=== PATIENT | female | born 1990 | race Caucasian/White ===

== ENCOUNTER 2024-07-09 14:37 | Inpatient (IN) | payer OTHER ==
[2024-07-09] MEDS: LACTATED RINGERS SOLUTION 1,000 ML/1,000 ML INFUS.BAG IV SCH (15:45)
[2024-07-09 17:01] LABS: EPI CELLS >36 /uL (0-25.1); HYALINE CASTS 4 /uL (0-3.1); PH,URINE 5.5 (5.0-8.0); URINE APPEARANCE CLEAR; URINE BILIRUBIN NEGATIVE (NEGATIVE); URINE COLOR YELLOW; URINE GLUCOSE (UA) 2+ (NEGATIVE); URINE KETONE TRACE (NEGATIVE); URINE LEUK ESTERASE 1+ (NEGATIVE); URINE NITRITE NEGATIVE (NEGATIVE); URINE PROTEIN TRACE (NEGATIVE); URINE WBC 92 /uL (0-25.8)
[2024-07-09 17:04] LABS: URINE BACTERIA 184.3 /uL (0-1359); URINE RBC 30.1 /uL (0-23.9)
[2024-07-09 20:12] VITALS: BMI 38.9
[2024-07-09 20:38] LABS: BASO % 0.4 % (0-2.0); EOS % 0.6 % (0-4.5); HEMATOCRIT 38.6 % (32.4-45.2); HEMOGLOBIN 12.3 GM/dL (10.7-15.3); LYMPH % 19.5 % (8-40); MCH 26.7 pg (25.7-33.7); MEAN CELL VOLUME 83.5 fl (80-96); MEAN PLT VOLUME 9.6 fl (7.5-11.1); MONO % 6.8 % (3.8-10.2); NEUT % 72.7 % (42.8-82.8); PLATELET COUNT 296 10^3/uL (134-434); RBC 4.62 M/mm3 (3.60-5.2); RDW 14.6 % (11.6-15.6); WHITE BLOOD COUNT 9.8 K/mm3 (4.0-10.0)
[2024-07-09 20:50] LABS: INR 0.99 (0.83-1.09); PROTHROMBIN TIME (PATIENT) 11.2 SEC (9.7-13.0)
[2024-07-09 20:53] LABS: ACTIVATED PTT 29.3 SECONDS (25.2-36.5)
[2024-07-09 20:55] LABS: POTASSIUM 4.3 mmol/L (3.5-5.1)
[2024-07-09 20:56] LABS: CALCIUM 9.1 mg/dL (8.5-10.1)
[2024-07-09 20:57] LABS: BLOOD UREA NITROGEN 11.6 mg/dL (7-18)
[2024-07-09 21:01] LABS: CREATININE 0.6 mg/dL (0.55-1.3)
[2024-07-09] MEDS ORDERED: BUTORPHANOL TARTRATE 2 MG/ML VIAL ONE (21:22)
[2024-07-09] MEDS ORDERED: PROMETHAZINE HCL 25 MG/1 ML VIAL ONE (21:23)
[2024-07-09] MEDS: PROMETHAZINE HCL 25 MG/1 ML VIAL IVPB ONE (21:45)
[2024-07-09] MEDS: BUTORPHANOL TARTRATE 2 MG/ML VIAL IVPB ONE (21:45)
[2024-07-10] MEDS ORDERED: PROMETHAZINE HCL 25 MG/1 ML VIAL ONE (02:55)
[2024-07-10] MEDS ORDERED: BUTORPHANOL TARTRATE 2 MG/ML VIAL ONE (02:55)
[2024-07-10] MEDS: PROMETHAZINE HCL 25 MG/1 ML VIAL IVPB PRN (03:00)
[2024-07-10] MEDS: BUTORPHANOL TARTRATE 1 MG/ML VIAL IVPB PRN (03:00)
[2024-07-10] MEDS ORDERED: OXYTOCIN 20 UNITS in 0.9% NS 20 UNIT/1,000 ML INFUS.BAG IV ONE ×2 (04:00→06:47)
[2024-07-10] MEDS ORDERED: LIDOCAINE HCL 1% PRESERVATIVE FREE - 30ML VIAL ONE (04:00)
[2024-07-10] MEDS: OXYTOCIN 20 UNITS in 0.9% NS 20 UNIT/1,000 ML INFUS.BAG IV SCH (04:09)
[2024-07-10] MEDS ORDERED: oxyCODONE HCL 5 MG TABLET PO PRN (04:30)
[2024-07-10] MEDS ORDERED: METHYLERGONOVINE MALEATE 0.2 MG/1 ML AMP IM PRN (04:30)
[2024-07-10] MEDS ORDERED: BISACODYL 10 MG SUPP.RECT RC PRN (04:30)
[2024-07-10] MEDS: IBUPROFEN 600 MG TABLET (FP) PO PRN (09:23)
[2024-07-10] MEDS: FERROUS SO4 325 MG TABLET (FP) PO SCH (09:23)
[2024-07-10] MEDS: PRENATAL VITAMINS W/ FOLIC ACID TABLET (FP) PO SCH (09:23)
[2024-07-10 12:55] LABS: HIV INTERPRETATION NEGATIVE (NEGATIVE)
[2024-07-10] MEDS: ACETAMINOPHEN 325 MG TABLET (FP) PO PRN (19:27)
[2024-07-11 07:32] LABS: BASO % 0.7 % (0-2.0); EOS % 2.3 % (0-4.5); HEMATOCRIT 33.9 % (32.4-45.2); LYMPH % 24.3 % (8-40); MCH 26.6 pg (25.7-33.7); MCHC 32.4 g/dl (32.0-36.0); MEAN CELL VOLUME 82.1 fl (80-96); MEAN PLT VOLUME 9.8 fl (7.5-11.1); MONO % 7.3 % (3.8-10.2); NEUT % 65.4 % (42.8-82.8); PLATELET COUNT 263 10^3/uL (134-434); RBC 4.13 M/mm3 (3.60-5.2); RDW 15.1 % (11.6-15.6); WHITE BLOOD COUNT 11.3 K/mm3 (4.0-10.0)
[2024-07-11] MEDS: BENZOCAINE 20% 57 GM BOTTLE TP PRN (10:45)
[2024-07-11] MEDS: WITCH HAZEL 50% (TUCKS) 40 PAD/JAR PAD TP PRN (21:04)
[2024-07-11] MEDS: BENZOCAINE 28 GM HEMORRHOIDAL OINTMENT TP PRN (21:05)
[2024-07-11] MEDS ORDERED: SENNOSIDES/DOCUSATE COMBO (SENNA PLUS) TABLET (UD) PO PRN (22:00)
[2024-07-11 22:05] VITALS: RESP 18
[2024-07-12 09:16] VITALS: BP 140/69; PULSE 92; TEMP 98.8
== END 2024-07-12 13:05 | disposition home or self-care (01) | DRG 560 ==
LOC: JDEL 14:37 → JLDR 18:30 → J3W 07-10 08:00
PROVIDERS: ADMIT Obstetrics & Gynecology; ATTEND Obstetrics & Gynecology
PROC: 10E0XZZ Delivery of Products of Conception, External Approach (ICD-10-PCS; principal; 2024-07-09)
DX: O24.429 Gestational diabetes mellitus in childbirth, unspecified control (principal); Z3A.37 37 weeks gestation of pregnancy; Z37.0 Single live birth
CPT/HCPCS: 36415; 59409; 80048; 81003; 82962; 85025; 85610; 85730; 86780; 86850; 86900; 86901; 87086; 87389